=== PATIENT | male | born 1990 ===

== ENCOUNTER 2016-11-06 12:38 | Emergency (ER) | payer MEDICAID ==
[2016-11-06 12:52] VITALS: RESP 18; TEMP 98.1; BMI 38.2
[2016-11-06 13:59] LABS: BASO # 0.01 K/mm3 (0.0-2.0); BASO % 0.2 % (0.0-3.0); EOS # 0.1 (0.0-0.7); EOS % 1.7 % (1.5-5.0); GRAN # 4.08 (1.4-6.5); GRAN % 62.1 % (50.0-68.0); HEMATOCRIT 42.1 % (42.0-52.0); LYMPH # 2.1 (1.2-3.4); LYMPH % 31.3 % (22.0-35.0); MEAN CELL VOLUME 86.3 fl (80.0-105.0); MEAN CORPUSCULAR HEMOGLOBIN 30.5 pg (25.0-35.0); MEAN CORPUSCULAR HGB CONC 35.4 g/dl (31.0-37.0); MEAN PLATELET VOLUME 10.8 fl (7.0-11.0); MONO # 0.3 (0.1-0.6); MONO % 4.7 % (1.0-6.0); RED CELL DISTRIBUTION WIDTH 13.5 % (11.5-14.5); WHITE BLOOD COUNT 6.6 10^3/ul (4.5-11.0)
[2016-11-06 14:05] LABS: URINE BILIRUBIN SMALL (NEGATIVE); URINE BLOOD NEGATIVE (NEGATIVE); URINE GLUCOSE (UA) NEGATIVE (NEGATIVE); URINE KETONE >=80 mg/dL (NEGATIVE); URINE LEUKOCYTE ESTERASE NEGATIVE Leu/uL (NEGATIVE); URINE PROTEIN TRACE mg/dL (<30 mg/dL); URINE UROBILINOGEN 0.2 E.U./dL (<1 E.U./dL)
[2016-11-06 14:06] LABS: URINE APPEARANCE SL CLOUDY (CLEAR); URINE COLOR YELLOW (YELLOW)
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
[2016-11-06 14:11] LABS: URINE RBC NEGATIVE /hpf (0-2)
[2016-11-06 14:12] LABS: URINE BACTERIA TRACE (NEG)
--- NOTE | 2016-11-06 14:14 | RAD ---
HISTORY: left sided chest pain COMPARISON: 06/02/2015 FINDINGS: LUNGS: No active pulmonary disease. PLEURA: No significant pleural effusion identified, no pneumothorax apparent. CARDIOVASCULAR: Normal. OSSEOUS STRUCTURES: No significant abnormalities. VISUALIZED UPPER ABDOMEN: Normal. OTHER FINDINGS: None. IMPRESSION: No active disease.
[2016-11-06 14:15] LABS: ALB/GLOB RATIO 1.4 (1.1-1.8); ALKALINE PHOSPHATASE 46 U/L (38-126); ALT/SGPT 41 U/L (7-56); AST/SGOT 27 U/L (17-59); BILIRUBIN,TOTAL 0.6 mg/dL (0.2-1.3); BLOOD UREA NITROGEN 12 mg/dL (7-21); CALCIUM 9.5 mg/dL (8.4-10.5); CARBON DIOXIDE 27 mmol/L (21-33); CHLORIDE 104 mmol/L (98-107); GFR AFRICAN-AMERICAN > 60; GLUCOSE,RANDOM 81 mg/dL (70-110); POTASSIUM 4.2 mmol/L (3.6-5.0); SODIUM 143 mmol/L (132-148)
[2016-11-06 14:22] LABS: INR 1.07 (0.93-1.08)
[2016-11-06 14:23] LABS: D DIMER 0.24 mg/L FEU (0-0.50)
[2016-11-06 14:26] LABS: TROPONIN I < 0.01 ng/mL
[2016-11-06 20:17] VITALS: O2SAT 98
[2016-11-06 20:18] VITALS: BP 141/92; PULSE 77
--- NOTE | 2016-11-06 23:18 | CARD ---
APPROVED REPORT EKG Measurement Heart [id number] <Conclusion> Normal sinus rhythm Normal ECG
== END 2016-11-06 16:20 | disposition home or self-care (01) ==
LOC: ED 12:38
DX: R07.9 Chest pain, unspecified (principal); M54.6 Pain in thoracic spine; T14.8 Other injury of unspecified body region; X58.XXXA Exposure to other specified factors, initial encounter